=== PATIENT | female | born 1980 ===

== ENCOUNTER 2023-07-10 18:11 | Outpatient (REF) | payer MEDICAID, OTHER, SELFPAY ==
[2023-07-13 13:37] LABS: C. trachomatis RNA TMA NOT DETECTED (NOT DETECTED); N. gonorrhoeae RNA TMA NOT DETECTED (NOT DETECTED)
== END 2023-07-10 18:12 | disposition home or self-care (01) ==
LOC: HO.CHCLNP 18:11
PROVIDERS: Visit Provider Internal Medicine
DX: N94.9 Unspecified condition associated with female genital organs and menstrual cycle (principal); Z20.2 Contact with and (suspected) exposure to infections with a predominantly sexual mode of transmission
CPT/HCPCS: 36415; 81513; 87491; 87591